=== PATIENT | male | born 1980 | race Caucasian/White ===

== ENCOUNTER 2020-12-13 17:30 | Emergency (ER) | payer OTHER ==
[~2020-12-13 17:30] MED LIST: ADMELOG100 UNIT/1 SC; ATORVASTATIN CA40 MG PO; IMDUR ER TAB 3030 MG PO; LANTUS100 UNIT/1 SQ; LEVOTHYROXINE75 MCG PO; LO-DOSE ASPIRIN81 MG PO; ZOFRAN ODT 4 MG4 MG GT
== END 2020-12-13 18:35 | disposition left against medical advice (07) ==
LOC: ER1 17:30
DX: I51.9 Heart disease, unspecified (principal); Z53.21 Procedure and treatment not carried out due to patient leaving prior to being seen by health care provider